=== PATIENT | female | born 2000 | race Caucasian/White ===

== ENCOUNTER 2022-12-11 08:17 | Outpatient (CLI) | payer BC, SELFPAY ==
--- NOTE | 2022-12-11 08:45 | CRLHL7_ITS ---
For Patients: As a result of the Century Cures Act, medical imaging exams and procedure reports are released immediately into your electronic medical record. You may view this report before your referring provider. If you have questions, please contact your health care provider. CLINICAL HISTORY: DISPLACEMENT OF IUD Comparison 06/23/2018 TECHNIQUE: 2D pani[place] scale and color Doppler images were acquired of the pelvis using a transvaginal approach. FINDINGS: On transvaginal imaging, the myometrium has a normal uniform echotexture. The uterus measures 7.2 x 3.1 x 4.3 cm. Normal position of the IUD within the endometrial canal. The left ovary measures 3.8 x 2.3 x 2.7 cm in size and the right ovary measures 3.4 x 1.6 x 1.4 cm. The ovaries demonstrate normal arterial and venous blood flow on color Doppler analysis. There are no suspicious fluid collections within the cul-de-sac. IMPRESSION: Normal position of the IUD within the endometrial canal. Dictated by Christiano Costa MD @ 12/11/2022 9:26:06 AM (Electronically Signed)
== END 2022-12-11 08:18 | disposition home or self-care (01) ==
LOC: US 08:18
PROVIDERS: PCP Family Medicine; Visit Provider Physician Assistant
DX: T83.32XA Displacement of intrauterine contraceptive device, initial encounter (principal)
CPT/HCPCS: 76830

== ENCOUNTER 2023-03-19 10:26 | Outpatient (CLI) | payer BC, SELFPAY ==
[2023-03-19 13:46] LABS: Chlamydia DNA Amplified* NOT DETECTED (No Detected); GC DNA Amplified* NOT DETECTED (No Detected)
[2023-03-22 09:21] LABS: HSV 1 Subtype by PCR Detected; HSV 2 Subtype by PCR Not Detected; Herpes Simplex Subtype Source Swab
== END 2023-03-19 10:27 | disposition home or self-care (01) ==
PROVIDERS: PCP Family Medicine; Visit Provider Registered Nurse
DX: N89.8 Other specified noninflammatory disorders of vagina (principal)
CPT/HCPCS: 87491; 87529; 87591

== ENCOUNTER 2023-08-24 10:05 | Outpatient (CLI) | payer BC, SELFPAY ==
[2023-08-24 15:08] LABS: Chlamydia DNA Amplified* NOT DETECTED (No Detected); GC DNA Amplified* NOT DETECTED (No Detected)
== END 2023-08-24 10:06 | disposition home or self-care (01) ==
LOC: NFLDUCREF 10:07
PROVIDERS: PCP Family Medicine; Visit Provider Nurse Practitioner Family
DX: R39.9 Unspecified symptoms and signs involving the genitourinary system (principal)
CPT/HCPCS: 87086; 87491; 87591

== ENCOUNTER 2023-10-15 09:25 | Outpatient (CLI) | payer BC, SELFPAY | END 2023-10-15 09:26 | disposition home or self-care (01) | LOC: NFLDREF 10-16 10:31 | PROVIDERS: PCP Family Medicine; Referring Provider Family Medicine; Visit Provider Registered Nurse | DX: Z13.220 Encounter for screening for lipoid disorders (principal); Z13.1 Encounter for screening for diabetes mellitus | CPT/HCPCS: 80061; 82947 ==

== ENCOUNTER 2024-03-07 11:01 | Outpatient (CLI) | payer BC, SELFPAY | END 2024-03-07 11:02 | disposition home or self-care (01) | PROVIDERS: PCP Family Medicine; Visit Provider Obstetrics & Gynecology | DX: O20.9 Hemorrhage in early pregnancy, unspecified (principal); Z67.11 Type A blood, Rh negative | CPT/HCPCS: 84702; 86850; 86900; 86901 ==

== ENCOUNTER 2024-03-09 07:53 | Outpatient (CLI) | payer BC, SELFPAY | END 2024-03-09 07:54 | disposition home or self-care (01) | LOC: NFLDREF 03-12 13:04 | PROVIDERS: PCP Family Medicine; Referring Provider Family Medicine; Visit Provider Obstetrics & Gynecology | DX: O20.9 Hemorrhage in early pregnancy, unspecified (principal) | CPT/HCPCS: 84702 ==

== ENCOUNTER 2024-08-12 11:20 | Outpatient (CLI) | payer BC, SELFPAY ==
[2024-08-12 14:26] LABS: Chlamydia DNA Amplified* NOT DETECTED (No Detected); GC DNA Amplified* NOT DETECTED (No Detected)
== END 2024-08-12 11:21 | disposition home or self-care (01) ==
PROVIDERS: PCP Family Medicine; Visit Provider Obstetrics & Gynecology
DX: R30.0 Dysuria (principal); N90.89 Other specified noninflammatory disorders of vulva and perineum; Z11.3 Encounter for screening for infections with a predominantly sexual mode of transmission
CPT/HCPCS: 81513; 87086; 87481; 87491; 87591; 87661

== ENCOUNTER 2024-10-26 09:52 | Outpatient (CLI) | payer BC, SELFPAY ==
--- NOTE | 2024-10-26 10:15 | CRLHL7_ITS ---
For Patients: As a result of the Cures Act, medical imaging exams and procedure reports are released immediately into your electronic medical record. You may view this report before your referring provider. If you have questions, please contact your health care provider. OB ULTRASOUND LESS THAN 14 WEEKS, 10/26/2024 CLINICAL HISTORY: Dating and viability. COMPARISON: None. TECHNIQUE: Real time pani[place] scale imaging of the fetus was performed. Transvaginal imaging performed. Transvaginal ultrasound of the pelvis was performed to better evaluate the genitourinary organs such as the ovaries and/or endometrium. FINDINGS: Surgery: No. Imaging: TV. LMP: 09/09/2024. KENNEDY by LMP: 06/16/2025. GA: 6 weeks 5 days. CRL: 1.1 cm, 7 weeks 2 days. KENNEDY: 06/12/2025. FHR: 145 bpm. GEST SAC: 2.8 cm, appears WNL. YOLK SAC: 2.7 mm, appears WNL. RIGHT OV: 3.6 x 2.0 x 3.1 cm. CL. LEFT OV: 2.7 x 2.0 x 2.4 cm. IMPRESSION: Single living intrauterine measuring 7 weeks 2 days and sonographic due date 06/12/2025. Christiano Costa M.D. Diagnostic Radiologist [email or web address] Transcribed: 11:22 am DW/Dictated by: Christiano Costa MD @ 10/26/2024 10:40:00 AM (Electronically Signed)
== END 2024-10-26 09:53 | disposition home or self-care (01) ==
LOC: US 09:52
PROVIDERS: PCP Family Medicine; Visit Provider Registered Nurse
DX: Z34.91 Encounter for supervision of normal pregnancy, unspecified, first trimester (principal); Z3A.01 Less than 8 weeks gestation of pregnancy
CPT/HCPCS: 76817

== ENCOUNTER 2024-10-26 10:46 | Outpatient (CLI) | payer BC, SELFPAY ==
[2024-10-26 16:35] LABS: Chlamydia DNA Amplified* NOT DETECTED (No Detected); GC DNA Amplified* NOT DETECTED (No Detected)
== END 2024-10-26 10:47 | disposition home or self-care (01) ==
PROVIDERS: PCP Family Medicine; Visit Provider Registered Nurse
DX: Z34.01 Encounter for supervision of normal first pregnancy, first trimester (principal)
CPT/HCPCS: 83020; 83021; 85660; 86592; 86703; 86704; 86706; 86762; 86787; 86803; 86850; 87086; 87340; 87491; 87591